=== PATIENT | female | born 1955 | race Caucasian/White ===

== ENCOUNTER 2016-11-25 00:19 | Observation (INO) | payer OTHER ==
[~2016-11-25] VITALS: Ht 170.2 cm; Wt 123.2 kg
[~2016-11-25 00:19] MED LIST: ASPIR 8181 M1 PO; ASPIRIN EC325 MG PO; ATORVASTATIN CA40 MG PO; CELECOXIB200 MG PO; DOCUSATE SODIU100 MG PO; EFFIENT10 MG PO; ENDOCET 5-3251 EACH PO; JANUMET 50/11 TABLET PO; LOFIBRA,TRIGLI160 MG PO; LOPRESSOR50 MG PO; LOVENOX40 MG/0.4 SC; MAGNESIUM400 M1 PO; NITROSTAT0.4 MG SL; OMEPRAZOLE40 M1 PO; PANTOPRAZOLE SO40 MG PO; POTASSIUM GLUCO99 M1 PO; REQUIP2 MG PO; TOPROL XL50 MG PO; VALIUM5 MG PO; ZESTRIL40 MG PO
[2016-11-25 00:56] LABS: HEMATOCRIT 34.4 % (36.0-46.0); MCH 25.4 PG (29.0-34.0); MCHC 30.5 G/DL (30.0-36.0); MCV 83.1 FL (83-99); MEAN PLAT.VOLUME 9.4 uM^3 (9.5-12.4); PLATELET COUNT 310 K/uL (156-360); RBC DIS.WIDTH-SD 45.5 % (39-53); RED BLOOD COUNT 4.14 M/uL (3.80-5.20); WHITE BLOOD COUNT 6.7 K/uL (4.1-10.2)
[2016-11-25 01:04] LABS: CHLORIDE 108 mEq/L (99-109); POTASSIUM 3.9 mEq/L (3.7-5.4); SODIUM 141 mEq/L (136-147)
[2016-11-25 01:06] LABS: GLUCOSE 135 mg/dL (70-99)
[2016-11-25 01:07] LABS: ANION GAP 9 MEQ/L (2-14)
[2016-11-25 01:10] LABS: GFR ESTIMATE (CALCULATED) > 59 mL/min/
[2016-11-25 01:11] LABS: UREA NITROGEN (BUN) 13 mg/dL (9-23)
[2016-11-25 01:16] LABS: TROP-I INTERPRETATION NEGATIVE; TROPONIN-I 0.01 ng/mL (0.0-0.30)
[2016-11-25] MEDS ORDERED: METOPROLOL SUC100 MG PO (03:23)
[2016-11-25] MEDS ORDERED: LO-DOSE ASPIRIN81 M2 PO (03:24)
[2016-11-25] MEDS ORDERED: DULOXETINE HCL30 MG PO (03:25)
[2016-11-25] MEDS ORDERED: TIZANIDINE HCL4 MG PO (03:26)
[2016-11-25 04:24] VITALS: BP 173/80
[2016-11-25 07:59] LABS: HDL CHOLESTEROL 41 MG/DL (Desirable>=50); LDL CHOLESTEROL 56 mg/dL (Desirable<100); NON-HDL CHOLESTEROL 76 mg/dL (Desirable<160); TOTAL CHOLESTEROL 117 mg/dL (Desirable<200); TRIGLYCERIDES 99 MG/DL (Normal: <150)
[2016-11-25 08:11] LABS: TROP-I INTERPRETATION NEGATIVE; TROPONIN-I 0.02 ng/mL (0.0-0.30)
[2016-11-25 08:21] LABS: POINT-OF-CARE METER ID UU14162513
[2016-11-25 08:25] VITALS: BP 161/82
[2016-11-25 09:26] LABS: Estimated Average Glucose 137 mg/dL (70-123); HEMOGLOBIN A1c (GLYCOHEMOGLOB) 6.4 % HGB (Below 5.7)
[2016-11-25 11:28] VITALS: BP 185/87
[2016-11-25 13:12] LABS: TROP-I INTERPRETATION NEGATIVE; TROPONIN-I 0.02 ng/mL (0.0-0.30)
[2016-11-25 15:22] VITALS: BP 175/79
[2016-11-25] MEDS ORDERED: FENOFIBRATE160 M1 PO (15:35)
[2016-11-25] MEDS ORDERED: ATORVASTATIN CA10 MG PO (15:36)
[2016-11-25] MEDS ORDERED: CYMBALTA60 MG PO (15:38)
[2016-11-25] MEDS ORDERED: NEXIUM40 MG PO ×2 (15:45→15:53)
[2016-11-25] MEDS ORDERED: EFFIENT5 MG PO (15:49)
[2016-11-25] MEDS ORDERED: ATORVASTATIN CA40 MG PO (15:52)
[2016-11-25] MEDS ORDERED: EFFIENT10 MG PO (15:54)
[2016-11-25] MEDS ORDERED: REQUIP2 MG PO (15:59)
[2016-11-25] MEDS ORDERED: NEURONTIN600 MG PO (16:01)
[2016-11-25] MEDS ORDERED: DAILY VITAMIN1 EAC4 PO (16:01)
[2016-11-25] MEDS ORDERED: FISH OIL 1,0001 EA11 PO (16:01)
[2016-11-25] MEDS ORDERED: MAGNESIUM250 MG PO (16:02)
[2016-11-25] MEDS ORDERED: POTASSIUM-9999 MG PO (16:02)
[2016-11-25] MEDS ORDERED: CO Q-10100 MG PO (16:02)
== END 2016-11-25 17:05 | disposition home or self-care (01) ==
LOC: EME 00:19 → EDOF 03:02 → 5WEST 04:22
PROVIDERS: Hospitalist; Physician Assistant Medical
DX: R07.89 Other chest pain (principal); E11.65 Type 2 diabetes mellitus with hyperglycemia; I10 Essential (primary) hypertension; I25.2 Old myocardial infarction; K21.9 Gastro-esophageal reflux disease without esophagitis; I25.10 Atherosclerotic heart disease of native coronary artery without angina pectoris; I25.82 Chronic total occlusion of coronary artery; E66.01 Morbid (severe) obesity due to excess calories; Z68.41 Body mass index [BMI] 40.0-44.9, adult; G25.81 Restless legs syndrome; E78.5 Hyperlipidemia, unspecified; Z95.5 Presence of coronary angioplasty implant and graft; Z87.891 Personal history of nicotine dependence; F32.9 Major depressive disorder, single episode, unspecified; Z96.652 Presence of left artificial knee joint
CPT/HCPCS: 71020; 80048; 80061; 82948; 83036; 83880; 84484; 85027; 93005; 99281; 99283; G0378; J1650; J1815

== ENCOUNTER 2017-05-27 04:50 | Emergency (ER) | payer OTHER ==
[~2017-05-27] VITALS: Ht 170.2 cm; Wt 123.5 kg
[~2017-05-27 04:50] MED LIST changes: +ATORVASTATIN CA10 MG PO; +CO Q-10100 MG PO; +CYMBALTA60 MG PO; +DAILY VITAMIN1 EAC4 PO; +DULOXETINE HCL30 MG PO; +EFFIENT5 MG PO; +FENOFIBRATE160 M1 PO; +FISH OIL 1,0001 EA11 PO; +LO-DOSE ASPIRIN81 M2 PO; +MAGNESIUM250 MG PO; +METOPROLOL SUC100 MG PO; +NEURONTIN600 MG PO; +NEXIUM40 MG PO; +POTASSIUM-9999 MG PO; +TIZANIDINE HCL4 MG PO
[2017-05-27 04:59] VITALS: BP 171/94
[2017-05-27] MEDS ORDERED: CLEOCIN300 MG PO (05:19)
[2017-05-27] MEDS ORDERED: ULTRAM50 MG PO (05:19)
== END 2017-05-27 05:38 | disposition home or self-care (01) ==
LOC: EME 04:50
DX: L03.116 Cellulitis of left lower limb (principal); E11.9 Type 2 diabetes mellitus without complications; I10 Essential (primary) hypertension; F32.9 Major depressive disorder, single episode, unspecified; I25.2 Old myocardial infarction; Z96.659 Presence of unspecified artificial knee joint; Z79.84 Long term (current) use of oral hypoglycemic drugs; K21.9 Gastro-esophageal reflux disease without esophagitis; Z95.5 Presence of coronary angioplasty implant and graft; Z79.82 Long term (current) use of aspirin; Z88.0 Allergy status to penicillin; Z87.891 Personal history of nicotine dependence; Z88.6 Allergy status to analgesic agent
CPT/HCPCS: 99281; 99284

== ENCOUNTER 2017-06-30 08:21 | Inpatient (IN) | payer OTHER ==
[~2017-06-30] VITALS: Ht 170.2 cm; Wt 126.0 kg
[~2017-06-30 08:21] MED LIST changes: +AMLODIPINE BES2.5 MG PO; +CLEOCIN300 MG PO; +LISINOPRIL-HCT1 EAC3 PO; +NITRO-DUR1 EAC1 TD; +PLAVIX75 MG PO; +ULTRAM50 MG PO
[2017-06-30] MEDS ORDERED: ATORVASTATIN CA10 MG PO (09:02)
[2017-06-30 09:03] LABS: POINT-OF-CARE METER ID UU13113696
[2017-06-30 14:24] VITALS: BP 121/65
[2017-06-30 15:11] VITALS: BP 124/66
[2017-06-30 16:09] VITALS: BP 142/74
[2017-06-30 16:32] LABS: POINT-OF-CARE METER ID UU13113781; POINT-OF-CARE USER ID ENVKC36
[2017-06-30 19:08] VITALS: BP 161/77
[2017-06-30 20:47] LABS: POINT-OF-CARE METER ID UU13113781
== END 2017-06-30 21:10 | disposition short-term general hospital (02) | DRG 287 ==
LOC: CATH 08:21 → 2SOUTH 11:00 → ENRESERV 12:07 → 4EAST 14:05
PROVIDERS: Internal Medicine Cardiovascular Disease
DX: I25.110 Atherosclerotic heart disease of native coronary artery with unstable angina pectoris (principal); T82.855D Stenosis of coronary artery stent, subsequent encounter; Y83.1 Surgical operation with implant of artificial internal device as the cause of abnormal reaction of the patient, or of later complication, without mention of misadventure at the time of the procedure; I10 Essential (primary) hypertension; E78.5 Hyperlipidemia, unspecified; I25.5 Ischemic cardiomyopathy; E11.9 Type 2 diabetes mellitus without complications; K21.9 Gastro-esophageal reflux disease without esophagitis; G25.81 Restless legs syndrome; E66.01 Morbid (severe) obesity due to excess calories; Z98.61 Coronary angioplasty status; Z87.891 Personal history of nicotine dependence; Z98.84 Bariatric surgery status; Z68.41 Body mass index [BMI] 40.0-44.9, adult
CPT/HCPCS: 36415; 82043; 82570; 82948; 83036; 93005; C1769; C1887; J0360; J1644; J1815; J2250; J2405; J3010; J7040